=== PATIENT | male | born 1985 | race Hispanic/Latino ===

== ENCOUNTER 2020-10-05 20:00 | Emergency (ER) | payer BC ==
[2020-10-05 20:29] LABS: Absolute Lymphocytes (CBC) 2.4 K/uL (0.7-4.9); Basophils % 1.3 % (0-1.3); Hematocrit 42.6 % (39.6-49.0); Lymphocytes % 26.3 % (15.3-44.8); MPV 9.4 fL (7.6-11.3); RBC Red Blood Cell Count 4.86 M/uL (4.33-5.43)
[2020-10-05 20:41] LABS: Protime INR 1.04
[2020-10-05 20:53] LABS: ALT/SGPT 134 U/L (12-78); AST/SGOT 56 U/L (15-37); Albumin 3.8 g/dL (3.4-5.0); Alkaline Phosphatase 66 U/L (45-117); BUN Blood Urea Nitrogen 16 mg/dL (7-18); Bicarbonate 22 mmol/L (21-32); Bilirubin Direct 0.1 mg/dL (0-0.2); Bilirubin Total 0.5 mg/dL (0.2-1.0); Glucose Level 145 mg/dL (74-106); Magnesium 2.2 mg/dL (1.8-2.4); NT PRO-BNP 9 pg/mL (<125); Potassium 3.7 mmol/L (3.5-5.1); Protein, Total 8.2 g/dL (6.4-8.2); Sodium Level 140 mmol/L (136-145); Troponin (Emerg Dept Use Only) < 0.02 ng/mL (0.0-0.045)
--- NOTE | 2020-10-05 20:57 | RAD REPORT ---
EXAM DESCRIPTION: RAD - Chest Single View - 10/05/2020 8:47 pm CLINICAL HISTORY: CHEST PAIN Chest pain. COMPARISON: No comparisons FINDINGS: Portable technique limits examination quality. The lungs are grossly clear. The heart is normal in size. No displaced fractures. IMPRESSION: No acute intrathoracic process suspected.
[2020-10-05 22:26] LABS: Urine Blood TRACE (NEG); Urine Glucose NEGATIVE (NEG); Urine Protein NEGATIVE (NEG); Urine Specific Gravity 1.025 (1.005-1.030)
[2020-10-05 22:42] LABS: Barbiturates NEGATIVE (NEGATIVE); Benzodiazepines NEGATIVE (NEGATIVE); Cocaine NEGATIVE (NEGATIVE); METHAMPHETAM NEGATIVE (NEGATIVE); Methadone NEGATIVE (NEGATIVE); Opiates NEGATIVE (NEGATIVE); Phencyclidine NEGATIVE (NEGATIVE); THC Cannibis NEGATIVE (NEGATIVE)
--- NOTE | 2020-10-06 01:47 | ER ---
Nurse's Notes [facility] Name: Rick Iraheta Age: 35 yrs Sex: Male : 1985 Arrival Date: 10/05/2020 Time: 20:01 Bed 15 Private MD: Diagnosis: Chest pain, unspecified Presentation: 10/05 20:17 Chief complaint: Patient states: chest pain that radiates down R arm with dizziness ss upon repositioning that began 30 minutes prior to arrival. Pt is hyperventilating during triage. Coronavirus screen: Client denies travel out of the [place] in the last 14 days. Ebola Screen: Patient denies exposure to infectious person. Patient denies travel to an Ebola-affected area in the 21 days before illness onset. Initial Sepsis Screen: Does the patient meet any 2 criteria? No. Patient's initial sepsis screen is negative. Does the patient have a suspected source of infection? No. Patient's initial sepsis screen is negative. Risk Assessment: Do you want to hurt yourself or someone else? Patient reports no desire to harm self or others. Onset of symptoms was October 05, 2020. 20:17 Method Of Arrival: Wheelchair ss 20:17 Acuity: ALBAN 2 ss Historical: - Allergies: 20:19 No Known Allergies; ss - Home Meds: 20:19 None [Active]; ss - PMHx: 20:19 None; ss - PSHx: 20:19 nasal; ss - Immunization history:: Adult Immunizations up to date. - Social history:: Smoking status: Patient denies any tobacco usage or history of. Patient/guardian denies using alcohol, street drugs, IV drugs. Screenin:03 Abuse screen: Denies threats or abuse. Denies injuries from another. Nutritional ss screening: No deficits noted. Tuberculosis screening: Never had TB. Fall Risk None identified. Assessment: 20:03 General: Appears distressed, uncomfortable, Behavior is anxious, Denies fever, feeling ss ill, fatigue, chills. Pain: Complains of pain in chest and right arm Pain currently is 8 out of 10 on a pain scale. Quality of pain is described as aching, pressure, Pain began 30 min ago. Is continuous, Aggravated by range of motion of R arm. Neuro: Level of Consciousness is awake, alert, obeys commands, Oriented to. Neuro: Level of Consciousness is awake, alert, obeys commands, Oriented to person, place, time, situation, Supervisor [employer] are equal bilaterally Speech is normal. Cardiovascular: Pulses are palpable in right radial artery, right posterior tibial artery, left radial artery and left posterior tibial artery. Respiratory: Airway is patent Respiratory effort is even, Respiratory pattern is hyperventilation. Respiratory: Reports shortness of breath began suddenly when CP starated Denies cough. GI: Abdomen is non-distended, Patient currently denies abdominal pain, diarrhea, nausea, vomiting. : No signs and/or symptoms were reported regarding the genitourinary system. Denies burning with urination. EENT: Oral mucosa is moist. Derm: Skin is pink, warm \T\ dry. Musculoskeletal: Circulation, motion, and sensation intact. Range of motion: intact in all extremities, Swelling absent. 20:03 Reassessment: Pt appears much more calm. Reported anxiety initially states that he ss feels a little better. Denies CP at this time, but reports that his R arm is a 7/10 on pain scale. at bedside. Call light remains within reach. Pt remains on claims service adjustor. Pt states that his whole body feels heavy after episode. 22:40 Reassessment: Received a call from Anne-Marie from Lab. Stated patients D dimer is vg1 critical, 796. Notified Provider. 22:49 Reassessment: Patient appears in no apparent distress at this time. Patient and/or ss family updated on plan of care and expected duration. Pain level reassessed. Patient is alert, oriented x 3, equal unlabored respirations, skin warm/dry/pink. Patient states feeling better. Patient states symptoms have improved. 23:20 Reassessment: Patient appears in no apparent distress at this time. No changes from ss previously documented assessment. Patient and/or family updated on plan of care and expected duration. Pain level reassessed. Awaiting CT chest to be obtained. 10/06 00:02 Reassessment: Pt to CT now VIA stretcher. ss 00:39 Reassessment: Patient appears in no apparent distress at this time. Patient and/or sg family updated on plan of care and expected duration. Pain level reassessed. Patient is alert, oriented x 3, equal unlabored respirations, skin warm/dry/pink. repeat troponin sent. Pt has no complaints at this time. at bedside. Awaiting results from CT and lab. Vital Signs: 10/05 20:17 BP 134 / 90; Pulse 96; Resp 34; Pulse Ox 99% on R/A; Height 5 ft. 10 in. (177.80 cm); ss 20:38 Temp 98.5(O); Weight 99.79 kg; Pain 7/10; ss 21:00 BP 112 / 87; Pulse 87; Resp 19; Pulse Ox 98% on R/A; ss 22:47 BP 118 / 76; Pulse 73; Resp 16; Pulse Ox 99% on R/A; Pain 0/10; ss 10/06 00:38 BP 147 / 76; Pulse 71; Resp 16; Pulse Ox 98% on R/A; Pain 0/10; sg 10/05 20:38 Body Mass Index 31.57 (99.79 kg, 177.80 cm) ED Course: 10/05 20:01 Patient arrived in ED. cl3 20:03 Patient has correct armband on for positive identification. Bed in low position. Call ss light in reach. Side rails up X2. Adult w/ patient. hadoop infrastructure architect on. Pulse ox on. NIBP on. 20:04 Elsa Natarajan, RN is Primary Nurse. ca1 20:14 Inserted saline lock: 20 gauge in right antecubital area, using aseptic technique. Blood collected. 20:15 Javi Brody MD is Attending Physician. [facility] 20:18 Triage completed. 20:19 Arm band placed on left wrist. 20:48 XRAY Chest (1 view) In Process Unspecified. EDMS 10/06 00:20 CT Chest For PE Angio In Process Unspecified. EDND 02:03 No provider procedures requiring assistance completed. IV discontinued, intact, ss bleeding controlled, No redness/swelling at site. Pressure dressing applied. Administered Medications: No medications were administered Outcome: 01:47 Discharge ordered by . [facility] 02:03 Discharged to home ambulatory. 02:03 Condition: good 02:03 Discharge instructions given to patient, family, Instructed on discharge instructions, follow up and referral plans. Demonstrated understanding of instructions, follow-up care. 02:03 Patient left the ED. Signatures: Dispatcher [employer] EDND Gordy Barber RN RN sg Smirch, Shelby, RN RN Elsa Natarajan, VALERIANO Wynne, Charde cl3 Juany Davis, VALERIANO RN vg1 Javi Brody MD MD mh7
--- NOTE | 2020-10-06 01:47 | EDPHYS ---
Physician Documentation [facility] Name: Rick Iraheta Age: 35 yrs Sex: Male : 1985 Arrival Date: 10/05/2020 Time: 20:01 Bed 15 Private MD: ED Physician Javi Brody HPI: 10/05 21:28 This 35 yrs old Male presents to ER via Wheelchair with complaints of Chest mh7 Pain. Numbness Of Arm. 21:28 The patient or guardian reports chest pain that is located primarily in the anterior mh7 chest wall, right. The pain radiates to the right arm. Associated signs and symptoms: Pertinent positives: dizziness, shortness of breath, Pertinent negatives: abdominal pain, cough, diaphoresis, headache, lower extremity pain, lower extremity swelling, lightheadedness, nausea, near syncope, palpitations, recent travel, syncope, vomiting. The chest pain is described as sharp. Duration: The patient or guardian reports multiple episodes, that are intermittent, that wax and wane. Modifying factors: The symptoms are alleviated by nothing. the symptoms are aggravated by nothing. Severity of pain: At its worst the pain was moderate just prior to arrival, today, in the emergency department the pain is unchanged. The patient has experienced similar episodes in the past, a few times. Historical: - Allergies: 20:19 No Known Allergies; ss - Home Meds: 20:19 None [Active]; ss - PMHx: 20:19 None; ss - PSHx: 20:19 nasal; ss - Immunization history:: Adult Immunizations up to date. - Social history:: Smoking status: Patient denies any tobacco usage or history of. Patient/guardian denies using alcohol, street drugs, IV drugs. ROS: 21:28 Constitutional: Negative for fever, chills, and weight loss, Eyes: Negative for injury, mh7 pain, redness, and discharge, ENT: Negative for injury, pain, and discharge, Neck: Negative for injury, pain, and swelling, Abdomen/GI: Negative for abdominal pain, nausea, vomiting, diarrhea, and constipation, Back: Negative for injury and pain, : Negative for injury, bleeding, discharge, and swelling, Skin: Negative for injury, rash, and discoloration, Neuro: Negative for headache, weakness, numbness, tingling, and seizure, Psych: Negative for depression, anxiety, suicide ideation, homicidal ideation, and hallucinations, Allergy/Immunology: Negative for hives, rash, and allergies, Endocrine: Negative for neck swelling, polydipsia, polyuria, polyphagia, and marked weight changes, Hematologic/Lymphatic: Negative for swollen nodes, abnormal bleeding, and unusual bruising. Exam: 21:28 Constitutional: The patient appears in no acute distress, alert, awake, anxious, mh7 uncomfortable. 21:34 Head/Face: Normocephalic, atraumatic. Eyes: Pupils equal round and reactive to light, mh7 extra-ocular motions intact. Lids and lashes normal. Conjunctiva and sclera are non-icteric and not injected. Cornea within normal limits. Periorbital areas with no swelling, redness, or edema. Neck: Trachea midline, no thyromegaly or masses palpated, and no cervical lymphadenopathy. Supple, full range of motion without nuchal rigidity, or vertebral point tenderness. No Meningismus. Chest/axilla: Normal chest wall appearance and motion. Nontender with no deformity. No lesions are appreciated. Cardiovascular: Regular rate and rhythm with a normal S1 and S2. No gallops, murmurs, or rubs. Normal PMI, no JVD. No pulse deficits. Respiratory: Lungs have equal breath sounds bilaterally, clear to auscultation and percussion. No rales, rhonchi or wheezes noted. No increased work of breathing, no retractions or nasal flaring. Abdomen/GI: Soft, non-tender, with normal bowel sounds. No distension or tympany. No guarding or rebound. No evidence of tenderness throughout. Back: No spinal tenderness. No costovertebral tenderness. Full range of motion. Skin: Warm, dry with normal turgor. Normal color with no rashes, no lesions, and no evidence of cellulitis. MS/ Extremity: Pulses equal, no cyanosis. Neurovascular intact. Full, normal range of motion. Neuro: Awake and alert, GCS 15, oriented to person, place, time, and situation. Cranial nerves II-XII grossly intact. Motor strength 5/5 in all extremities. Sensory grossly intact. Cerebellar exam normal. Normal gait. 21:34 Psych: Behavior/mood is cooperative, anxious, Affect is animated, Oriented to person, place, time, Patient has no thoughts/intents to harm self or others. Judgement / Insight is normal. Memory is normal. Delusions/hallucinations are not present. Vital Signs: 20:17 BP 134 / 90; Pulse 96; Resp 34; Pulse Ox 99% on R/A; Height 5 ft. 10 in. (177.80 cm); ss 20:38 Temp 98.5(O); Weight 99.79 kg; Pain 7/10; ss 21:00 BP 112 / 87; Pulse 87; Resp 19; Pulse Ox 98% on R/A; ss 22:47 BP 118 / 76; Pulse 73; Resp 16; Pulse Ox 99% on R/A; Pain 0/10; ss 10/06 00:38 BP 147 / 76; Pulse 71; Resp 16; Pulse Ox 98% on R/A; Pain 0/10; sg 10/05 20:38 Body Mass Index 31.57 (99.79 kg, 177.80 cm) MDM: 01:45 Differential diagnosis: acute myocardial infarction, acute pericarditis, anxiety, mh7 coronary artery disease chest wall pain, congestive heart failure costochondritis, myocarditis, pericarditis, pleurisy, pneumonia, pneumothorax, pulmonary embolus. HEART Score: History: Slightly Suspicious (0), ECG: Normal (0), Age: < or = 45 years (0), Risk Factors: No Risk Factors Known (0), Troponin: < or = 1 x Normal Limit (0), Total Score = 0. Data reviewed: vital signs, nurses notes, lab test result(s), cardiac enzymes, CBC, electrolytes, urinalysis, urine drug screen, EKG, radiologic studies, CT scan, plain films. Data interpreted: Pulse oximetry: on room air is 98 %. Interpretation: normal. Counseling: I had a detailed discussion with the patient and/or guardian regarding: the historical points, exam findings, and any diagnostic results supporting the discharge/admit diagnosis, the presence of at least one elevated blood pressure reading (>120/80) during this emergency department visit, lab results, radiology results, the need for outpatient follow up, to return to the emergency department if symptoms worsen or persist or if there are any questions or concerns that arise at home. Response to treatment: the patient's symptoms have resolved after treatment, the patient's blood pressure is in an acceptable range, mental status has returned to baseline, the patient no longer shows bradycardia, the patient is not short of breath, the patient is not tachycardic, the patient's pain is gone, the patient's temperature has normalized. 01:47 Patient medically screened. [facility] 10/05 20:15 Order name: Basic Metabolic Panel [facility] 10/05 20:15 Order name: CBC with Diff [facility] 10/05 20:15 Order name: LFT's [facility] 10/05 20:15 Order name: Magnesium [facility] 10/05 20:15 Order name: NT PRO-BNP [facility] 10/05 20:15 Order name: PT-INR; Complete Time: 22:23 [facility] 10/05 20:15 Order name: Troponin (emerg Dept Use Only); Complete Time: 22:23 [facility] 10/05 20:15 Order name: UDS; Complete Time: 22:45 [facility] 10/05 20:16 Order name: Basic Metabolic Panel; Complete Time: 22:23 [facility] 10/05 20:16 Order name: CBC with Automated Diff; Complete Time: 22:23 [facility] 10/05 20:16 Order name: Liver (Hepatic) Function; Complete Time: 22:23 [facility] 10/05 20:16 Order name: Magnesium; Complete Time: 22:23 [facility] 10/05 20:16 Order name: NT PRO-BNP; Complete Time: 22:23 [facility] 10/05 20:28 Order name: Glucose, Ancillary Testing; Complete Time: 22:23 [facility] 10/05 20:15 Order name: XRAY Chest (1 view); Complete Time: 22:23 [facility] 10/05 20:15 Order name: EKG; Complete Time: 20:16 [facility] 10/05 20:15 Order name: Cardiac monitoring; Complete Time: 20:23 [facility] 10/05 20:15 Order name: EKG - Nurse/Tech; Complete Time: 20:23 [facility] 10/05 20:15 Order name: IV Saline Lock; Complete Time: 20:23 [facility] 10/05 20:15 Order name: Labs collected and sent; Complete Time: 20:23 [facility] 10/05 20:15 Order name: O2 Per Protocol; Complete Time: 20:23 [facility] 10/05 20:15 Order name: O2 Sat Monitoring; Complete Time: 20: [facility] 12/30 20:15 Order name: Urine Dipstick-Ancillary (obtain specimen); Complete Time: 22:15 [facility] 10/05 22:24 Order name: D-Dimer; Complete Time: 22:45 [facility] 10/05 22:25 Order name: Urine Dipstick--Ancillary (enter results) tt3 10/05 22:26 Order name: Urine Dipstick-Ancillary; Complete Time: 22:45 [facility] 10/05 22:45 Order name: CT Chest For PE Angio [facility] 10/05 23:59 Order name: Troponin (emerg Dept Use Only); Complete Time: 01:32 mh7 Administered Medications: No medications were administered Disposition: 10/06/20 01:47 Discharged to Home. Impression: Chest pain, unspecified. - Condition is Stable. - Discharge Instructions: Nonspecific Chest Pain, [id number]. - Medication Reconciliation Form, Thank You Letter, Antibiotic Education, Prescription Opioid Use form. - Follow up: Private Physician; When: 1 - 2 days; Reason: Worsening of condition, Recheck today's complaints, Continuance of care, Re-evaluation by your physician. - Problem is new. - Symptoms are resolved. Signatures: Dispatcher [employer] [facility] Lashawn Herrera RN RN ss Javi Brody MD MD 7 Corrections: (The following items were deleted from the chart) 02:03 01:47 10/06/2020 01:47 Discharged to Home. Impression: Chest pain, unspecified. ss Condition is Stable. Forms are Medication Reconciliation Form, Thank You Letter, Antibiotic Education, Prescription Opioid Use. Follow up: Private Physician; When: 1 - 2 days; Reason: Worsening of condition, Recheck today's complaints, Continuance of care, Re-evaluation by your physician. Problem is new. Symptoms are resolved. 7
[2020-10-06 02:14] VITALS: TEMP 98.5
[2020-10-06 02:19] VITALS: BP 147/76; O2SAT 98
--- NOTE | 2020-10-06 17:54 | RAD REPORT ---
EXAM DESCRIPTION: CT Abdomen and Pelvis With Intravenous Contrast CLINICAL HISTORY: The patient is 28 years old and is Female; ABD PAIN vomiting after ingesting medic ation for UTI TECHNIQUE: Axial computed tomography images of the abdomen and pelvis with intravenous contrast. S agittal and coronal reformatted images were created and reviewed. This CT exam was performed using one or more of the following dose reduction techniques: automated exposure control, adjustment of t he mA and/or kV according to patient size, and/or use of iterative reconstruction technique. COMPARISON: CT abdomen pelvis with contrast March 29, 2020. FINDINGS: Lung bases: Unremarkable. No mass. No consolidation. ABDOMEN: Liver: Unremarkable. No mass. Gallbladder and bile ducts: Unremarkable. No calcified stones. No ductal dilation. Pancreas: No findings to suggest acute pancreatitis. No mass visualized. No ductal dilation. Spleen: Unremarkable. No splenomegaly. Adrenals: Unremarkable. No mass. Kidneys and ureters: No ureter stone. No solid mass. No hydronephrosis. Stomach and bowel: No bowel dilatation or obstruction. No bowel wall thickening. PELVIS: Appendix: The visualized appendix is normal. No pericecal inflammation to suggest acute appendici tis. Bladder: Bladder is nearly empty. No stones. Reproductive: Retroverted uterus. Anterior subserosal fibroid again noted right-sided ICD in plac e. ABDOMEN and PELVIS: Intraperitoneal space: Small amount of free fluid in the cul-de-sac, likely physiologic. No free air. Bones/joints: Scattered bone islands in the pelvis and proximal femora. Bilateral L5 spondylolysi s again noted with grade 1 L5-S1 spondylolisthesis. L4-5 disc protrusion. No acute fracture. No dislocation. Soft tissues: Unremarkable. Vasculature: Unremarkable. No abdominal aortic aneurysm. Lymph nodes: No pathologically enlarged lymph nodes. IMPRESSION: 1. No acute obstructive or inflammatory process identified. Normal appendix. 2. Additional non-emergent findings as above. Electronically signed by: Janis Lala MD 10/06/2020 5:32 AM TAP PULLER Due to temporary technical issues with the PACS/Fluency reporting system, reports are being signed by the in house radiologists without review as a courtesy to insure prompt reporting. The interpreting radiologist is fully responsible for the content of the report
--- NOTE | 2020-10-07 16:12 | EKG ---
Test Date: 2020-10-05 Test Time: 20:14:55 Drafter Electrical: FADUMO MEASUREMENT RESULTS: Intervals: Rate: 89 HI: 162 QRSD: 94 QT: 338 QTc: 411 [place]: P: 52 HI: 162 QRS: 4 T: 36 INTERPRETIVE STATEMENTS: Normal sinus rhythm Normal ECG No previous ECG available for comparison Electronically Signed On 10-07-20 16:09:44 MILITARY SCIENCE INSTRUCTOR by Jeremy Hancock
== END 2020-10-06 02:03 | disposition home or self-care (01) ==
LOC: ER 20:00
DX: R07.89 Other chest pain (principal)
CPT/HCPCS: 93005; 85025; 80048; 36415; 83735; 85610; 82947; 85379; 80076; 80307 ×8; 81003; 84484 ×2; 83880; 71275; 71045; 99284; Q9967

== ENCOUNTER 2023-05-16 08:46 | Day surgery (SDC) | payer BC, OTHER ==
[2023-05-16] MEDS ORDERED: NA CHLORIDE 0.9% 1,000 ML ONE (09:10)
[2023-05-16] MEDS ORDERED: FENTANYL CITR 100 MCG/2 ML ONE (10:00)
[2023-05-16] MEDS ORDERED: LIDOCAINE 2% MPF 5 ML VIAL ONE (10:00)
[2023-05-16] MEDS ORDERED: MIDAZOLAM HCL 2 MG/2 ML INJ ONE (10:00)
[2023-05-16] MEDS ORDERED: dexAMETHasone 10 MG/ML VIAL ONE (10:00)
[2023-05-16] MEDS ORDERED: propofoL 200 MG/20 ML VIAL IV ONE (10:00)
[2023-05-16] MEDS ORDERED: ROCURONIUM 50 MG/5 ML VIAL IV ONE (10:01)
[2023-05-16] MEDS ORDERED: ONDANSETRON 4 MG/2 ML VIAL ONE (10:01)
[2023-05-16] MEDS ORDERED: GLYCOPYRROLATE 0.2 MG/ML SYR ONE (10:01)
[2023-05-16] MEDS: BUPIVACAINE 0.5% PF 10 ML VIAL ONE ×2 (10:25→10:57)
[2023-05-16] MEDS ORDERED: HYDROCODONE/APAP 10/325 TAB ONE (12:54)
[2023-05-16 14:12] VITALS: BP 107/76; TEMP 97.5; O2SAT 97
--- NOTE | 2023-05-16 20:54 | OP ---
Date of Procedure: 05/16/2023 Surgeon: ADRIANNE RENEE Primary Care Physician: Unknown. Preoperative Diagnosis: Chronic tonsillitis. Postoperative Diagnosis: Chronic tonsillitis. Procedure: Tonsillectomy. Anesthesia: General endotracheal anesthesia was administered. We also infiltrated approximately 10 mL of 0.25% Marcaine without epinephrine into bilateral tonsillar fossa and soft palate. Estimated Blood Loss: Less than 10 mL. Specimens: Bilateral tonsils submitted to pathology for evaluation. Findings: Bilateral 3/4 exudate of tonsils; 0/4 adenoidal hypertrophy. Complications: None. Disposition: Stable. The patient tolerated the procedure well. Indication For Procedure: Patient is a pleasant 38-year-old male who presented to my outpatient clin ic with multiple tonsillar infections that have been refractory to outpatient oral antibiotics. Thes e were indications to bring the patient to operative suite with the above-mentioned procedure. He un derstood, all questions were answered. Risks versus benefits and complications were explained in det ail and a consent form was signed which was placed in the chart. Description Of Procedure: Patient was transferred from the preoperative holding area to the operatin g suite by Department of Anesthesia, placed on the operating room table supine, sedated, and intubate d in normal fashion. Table was rotated to 90 degrees. Head and eyes were covered with sterile blue towels and moist Ray-Soren was placed over the upper lip for protection. McIvor retractor was introduc ed in the right oral commissure and directed along the endotracheal tube and suspended from the Flasher stand. Tonsils were removed by retracting the superior poles midline with straight Allis clamps and then I dissected through the mucosa down the peritonsillar fascial planes with monopolar electrocaute ry on a setting of 20 for coagulation and 1 of cutting. The inferior poles were amputated with sucti on Bovie. Saline irrigation was introduced to the oral cavity and removed with suction Bovie. A Radha d retractor was used to retract the soft palate anteriorly and utilizing a laryngeal mirror, I was ab le to visualize the adenoid pad and there was no evidence of adenoid tissue. I infiltrated approxima tely 2 mL of 0.25% Marcaine without epinephrine into bilateral tonsillar fossae and soft palate. I paula rehman introduced a flexible orogastric tube into the esophagus and all the fluid contents were removed. All areas were checked for hemostasis and hemostasis was achieved. Patient was de-suspended from [facility] stand. McIvor retractor was removed. Patient's jaw was checked and found to be in proper al ignment. He tolerated the procedure well, was transferred back to Department of Anesthesia in stable condition where he was subsequently awakened, extubated, and transferred to postoperative care unit in stable condition. He will be discharged home on analgesic medication. He will follow up in 2 to 4 weeks or sooner, if needed. CIRO/BISHOP Voice ID: [id number] Report ID: [id number]
== END 2023-05-16 13:45 | disposition home or self-care (01) ==
LOC: OR 08:46
PROVIDERS: ATTEND Otolaryngology Facial Plastic Surgery
PROC: 0CTPXZZ Resection of Tonsils, External Approach (ICD-10-PCS; principal; 2023-05-16 10:00)
DX: J35.01 Chronic tonsillitis (principal)
CPT/HCPCS: 82947 ×2; 88304; 42826; J2704; J2001; J2250; J3010; J1100; J2405; J7030